=== PATIENT | male | born 1965 | race Caucasian/White ===

== ENCOUNTER → 2016-04-18 | Outpatient (REF) | payer OTHER, BC | LOC: M LABDRAWP 15:18 → M LABDRAW1 15:18 | PROVIDERS: ATTEND Physician Assistant | DX: M17.0 Bilateral primary osteoarthritis of knee (principal) ==

== ENCOUNTER → 2016-11-03 | Outpatient (CLI) | payer BC ==
[~2016-11-03] MED LIST: ATOR1TAB21 PO; COUM2.5T17 PO; LISI20TA PO; MORP15TASA PO; PERC5TAB12 PO
[2016-11-03 09:48] LABS: MEAN CORPUSCULAR HEMOGLOBIN 30.3 pg (27.0-33.0); MEAN CORPUSCULAR HGB CONC 33.7 g/dl (32.0-36.5); RED CELL DISTRIBUTION WIDTH 12.8 % (11.5-14.5); WHITE BLOOD COUNT 5.8 K/mm3 (4.0-10.0)
[2016-11-03 10:12] LABS: ALBUMIN 4.4 GM/DL (3.2-5.2); ALBUMIN/GLOBULIN RATIO 1.33 (1.00-1.93); ALKALINE PHOSPHATASE 90 U/L (45-117); ALT/SGPT 40 U/L (12-78); ANION GAP 8 MEQ/L (8-16); AST/SGOT 25 U/L (15-37); BILIRUBIN,TOTAL 1.7 MG/DL (0.2-1.0); BLOOD UREA NITROGEN 12 MG/DL (7-18); CALCIUM LEVEL 9.3 MG/DL (8.5-10.1); CARBON DIOXIDE LEVEL 29 MEQ/L (21-32); CHLORIDE LEVEL 103 MEQ/L (98-107); CREATININE FOR GFR 0.73 MG/DL (0.70-1.30); GLOMERULAR FILTRATION RATE > 60.0 (>56); GLUCOSE, FASTING 123 MG/DL (70-105); POTASSIUM SERUM 4.2 MEQ/L (3.5-5.1); SODIUM LEVEL 140 MEQ/L (136-145); TOTAL PROTEIN 7.7 GM/DL (6.4-8.2)
[2016-11-03 10:30] LABS: INR 0.88
--- NOTE | 2016-11-03 11:13 | REP ---
Clinical: Arthritis . Comparison: None . Technique: PA and lateral. Findings: The mediastinum and cardiac silhouette are normal. The lung metzger are clear and without acute consolidation, effusion, or pneumothorax. The skeletal structures are intact and normal. Impression: 1. No acute cardiopulmonary process. Signed by Carlos A Hill MD 11/03/2016 10:00 A
--- NOTE | 2016-11-03 16:47 | ECGEPIP ---
Stationary ECG Study [facility] Test Date: 2016-11-03 Pat Name: SIXTO SEWELL Department: Room: - Gender: M Quick Print Operator: [facility] : 1965 Requested By: Jaun Sevilla Order Number: [id number] Reading MD: Jose Angel Morse Measurements Intervals Mora Rate: 60 P: -11 WA: 144 QRS: 39 QRSD: 97 T: 15 QT: 416 QTc: 417 Interpretive Statements Normal sinus rhythm Delayed anterior R wave progression Comparison tracing not on file Electronically Signed On 11-03-2016 16:47:24 EDT by Jose Angel Morse
== END ==
LOC: M ADMPAT 09:07
PROVIDERS: ATTEND Orthopaedic Surgery
DX: Z01.818 Encounter for other preprocedural examination (principal); M17.12 Unilateral primary osteoarthritis, left knee

== ENCOUNTER 2016-11-16 11:15 | Inpatient (IN) | payer BC ==
[2016-11-03 09:37] VITALS: BP 130/78
--- NOTE | 2016-11-13 10:46 | HPE ---
DATE OF ANTICIPATED ADMISSION: 11/16/2016 ATTENDING PHYSICIAN: Dr. Whitley. CHIEF COMPLAINT: Left knee pain and stiffness. HISTORY: Patient is a 50-year-old male with progressively worsening left knee pain and stiffness. He has failed to improve with conservative measures and has continued pain with weightbearing activities and activities of daily living. He has consented for an elective left total knee arthroplasty with Dr. Whitley. Medical optimization received and reviewed from Dr. Morse. CURRENT MEDICATIONS: - lisinopril/hydrochlorothiazide 20/12.5 mg daily - Lipitor 20 mg daily - Nasonex 50 mcg two sprays in each nostril daily ALLERGIES: There are no known drug allergies. PAST MEDICAL HISTORY: Hypertension. Hyperlipidemia. PAST SURGICAL HISTORY: Noncontributory. SOCIAL HISTORY: Patient is a nonsmoker and only occasionally uses alcohol. REVIEW OF SYSTEMS: Patient denies fevers, chills, nausea, vomiting or diarrhea. He denies chest pain, shortness of breath, lightheadedness, dizziness or headaches. He does continue to have left knee pain with activities of daily living and weight bearing activities. EXAM: Well nourished, well developed male in no apparent distress. Head: Normocephalic. Neck: Supple without lymphadenopathy. Heart: Regular rate and rhythm. Lungs: Clear to auscultation bilaterally. Abdomen: Positive bowel sounds. Abdomen is soft and nontender to palpation. Musculoskeletal: Inspection of the left knee reveal no gross abnormalities. There is mild tenderness along the medial and lateral joint line. Motion in extension is full but he has only approximately 100 degrees of flexion. Left lower extremity strength is normal. No hip irritability was elicited with range of motion. His calf is soft, nontender to palpation with no palpable cords noted. Distally he is neurovascularly intact. Vital signs: Blood pressure 132/86, heart rate 82, respirations 14, temperature 98.1. Height 68 inches, weight 168 pounds. LABORATORY DATA: Chest x-ray: No acute cardiopulmonary process. EKG: Normal sinus rhythm with delayed anterior R wave progression. Comprehensive metabolic profile: Fasting glucose elevated at 123, BUN 12, creatinine 0.73, glomerular filtration rate greater than 60. Sodium 140, potassium 4.2, chloride 103, carbon dioxide 29, anion gap 8, calcium 9.3. AST 25, ALT 40, alkaline phosphatase 90. Total bilirubin elevated at 1.7. Total protein 7.7. Albumin 4.4. Albumin/globulin ratio 1.33. Complete blood count: WBC is 5.8, RBC 5.02, hemoglobin 15.2, hematocrit 45.2, platelets 289. Erythrocyte sedimentation rate 4. Prothrombin time decreased at 12. INR 0.88. Urine analysis is negative. Urine culture reveals no growth. Nasal and sinus culture reveal normal luis. IMPRESSION: Left knee osteoarthritis with x-rays notable for end stage degenerative changes. PLAN: Patient has consented for an elective left total knee arthroplasty with Dr. Whitley. Medical optimization received from Dr. Morse. NESHA
[~2016-11-16] VITALS: Ht 172.7 cm; Wt 79.4 kg
[~2016-11-16 11:15] MED LIST changes: -COUM2.5T17 PO; +LR 1,000 ML IV ONE; -MORP15TASA PO; -PERC5TAB12 PO
[2016-11-16] MEDS ORDERED: ACETAMINOPHEN 500 MG TAB PO ONE (11:30)
[2016-11-16] MEDS ORDERED: ceFAZolin 1GM INJ (J0690) As Ordered ONE (12:23)
[2016-11-16] MEDS ORDERED: TRANEXAMIC ACID 100 MG/ML 10ML VIAL As Ordered ONE (12:23)
[2016-11-16] MEDS ORDERED: EPINEPHrine INJ 1 MG/ML 1ML AMP As Ordered ONE (12:23)
[2016-11-16] MEDS ORDERED: BUPIVACAINE LIPOSOME/PF 1.3% 20 ML VIAL (13.3MG/ML)(EXPAREL) As Ordered ONE (12:24)
[2016-11-16] MEDS ORDERED: fentaNYL 100 MCG/2 ML INJECTION (J3010) As Ordered ONE ×2 (12:44→14:15)
[2016-11-16] MEDS ORDERED: MIDAZOLAM INJ 2 MG/2 ML VIAL (J2250) As Ordered ONE ×2 (12:44→14:15)
[2016-11-16] MEDS ORDERED: MIDAZOLAM INJ 2 MG/2 ML VIAL (J2250) IV ONE (13:30)
[2016-11-16] MEDS ORDERED: fentaNYL 100 MCG/2 ML INJECTION (J3010) IV ONE (13:30)
[2016-11-16] MEDS ORDERED: PROPOFOL 200 MG/20 ML VIAL As Ordered ONE (14:15)
[2016-11-16] MEDS ORDERED: LIDOCAINE 2% INJ 100 MG/5 ML SDV (FOR ANES.) As Ordered ONE (14:15)
[2016-11-16] MEDS ORDERED: ePHEDrine SULFATE 25 MG/5 ML(5MG/ML) SYRINGE As Ordered ONE (14:49)
[2016-11-16] MEDS ORDERED: MORPHINE 1MG/ML IN 0.9% NACL 100ML IV BAG As Ordered ONE (16:08)
[2016-11-16] MEDS ORDERED: EPIDURAL/PCA KEYS XX PRN (16:30)
[2016-11-16] MEDS ORDERED: ONDANSETRON 4MG/2ML VIAL (J2405) IV PRN ×2 (16:30→16:45)
[2016-11-16] MEDS ORDERED: FLEET ENEMA PR PRN (16:30)
[2016-11-16] MEDS ORDERED: ACETAMINOPHEN TAB 650MG DOSE (2X325MG) PO PRN (16:30)
[2016-11-16] MEDS ORDERED: diphenhydrAMINE INJ 50MG/ML VIAL (J1200) IV PRN (16:30)
[2016-11-16] MEDS ORDERED: NALBUPHINE HCL 10 MG/ML AMP (J2300) IV PRN (16:30)
[2016-11-16] MEDS ORDERED: NALOXONE INJ 0.4 MG/1 ML VIAL (J2310) IV PRN (16:30)
[2016-11-16] MEDS ORDERED: MORPHINE 1MG/ML IN 0.9% NACL 100ML IV BAG IV PRN (16:30)
[2016-11-16] MEDS ORDERED: fentaNYL 100 MCG/2 ML INJECTION (J3010) IV PRN (16:45)
[2016-11-16] MEDS ORDERED: PERCOCET 5MG/325MG TAB PO PRN (16:45)
[2016-11-16] MEDS ORDERED: METOCLOPRAMIDE INJ 10MG/2ML VIAL (J2765) IV PRN (16:45)
[2016-11-16] MEDS: LR 1,000 ML IV SCH (16:50)
--- NOTE | 2016-11-16 17:08 | RO ---
DATE OF PROCEDURE: 11/16/2016 PREPROCEDURE DIAGNOSIS: Left knee varus degenerative arthritis. POSTPROCEDURE DIAGNOSIS: Left knee varus degenerative arthritis. PROCEDURE: Left total knee arthroplasty using cruciate-retaining size 4 femoral component, size 4 tibial tray with a 12.5 mm rotating platform polyethylene insert and a 35 mm polyethylene button. All components were cemented. Prosthesis was made by [employer]. It was a PFC knee. SURGEON: Dr. Juan Whitley COUNTING MACHINE OPERATOR: Jamal Chantel Pulliam ANESTHESIA: Spinal with left femoral nerve block. COMPLICATIONS: None. SPECIMENS: Joint surface. DESCRIPTION OF PROCEDURE: Antibiotics were given intravenously preoperatively and then a left femoral nerve block, and then a spinal anesthetic was induced. Tourniquet was placed on the left upper thigh and not inflated. Left lower extremity was prepped and draped in the usual sterile fashion, then the leg was elevated, then the tourniquet was inflated to 250 mmHg after appropriate time out. A longitudinal incision was then made for a medial parapatellar approach to the knee. Bovie cautery was used to coagulate the crossing vessels. The subperiosteal dissection around the proximal and medial portion of the tibia was performed, as well as around the proximal lateral tibial plateau. The patellar was everted, then the knee was flexed. The anterior cruciate ligament (ACL) was debrided. A noemy was placed down the center of the femoral canal followed by the distal femoral cutting jig set at 5-degree valgus cut for a left knee at 10 mm resection level. The distal femoral cut was then performed. AP sizing jig measured just shy of 4; thus, it was pinned in that position. A 3-degree external rotation block was pinned, followed by the 4-in-1 block, size #4. We then performed the anterior, posterior, chamfer cuts, taking great care to protect the surrounding soft tissues. We then exposed the proximal tibial. I used the extramedullary alignment jig to estimate being aligned and parallel with the mechanical axis of the tibia. We referenced off the medial tibial condyle, set at 4 mm resection level. Block was pinned into that position, then a secondary check with the extramedullary noemy confirmed that we appeared to be parallel. Thus, a proximal tibial osteotomy was then performed. Lamina auxiliary equipment operator was placed laterally, and we performed a completion medial meniscectomy and debridement of the posteromedial osteophytes. We then placed the lamina auxiliary equipment operator medially and performed a completion lateral meniscectomy and debridement of the posterolateral osteophytes. We then used the spacer blocks, and I felt the 12.5 ultimately had given the best stability and there was excellent balance between the flexion and extension gaps. We then exposed the proximal tibia, sized for a #4 tibial tray, which was pinned into position, followed by the reamer and the broach, then the trial 12.5 polyethylene. Then, the femoral component was fixed into position, that is the trial, and then the knee brought into extension and then we everted the patella and performed patellar osteotomy and sized for a 35 button, which the lug holes were drilled and the patellofemoral tracking was noted to be anatomic with the prosthesis in position. There was good stability to varus-valgus stress testing at this point; thus, I removed all of the trial components after drilling the lug holes for the femur. Mrs. Chantel Pulliam mixed the cement on the back table and was also critical to the success of the procedure by helping to manipulate the knee, helping with appropriate soft tissue retraction, closing the wound, amongst many other tasks. As she mixed the cement on the back table, I injected Exparel into the posterior capsule and around the periosteum of the femur and the capsular incision, then copiously pulsatile lavage irrigated out the bony surfaces in preparation for cementing. Once they all had been thoroughly dried, we cemented the tibial tray, removed excess cement, placed the polyethylene, then cemented the femoral component, removed excess cement, brought the knee into extension, cemented the patellar button, removed excess cement, held it with a clamp until the cement hardened. While we were waiting, I irrigated the knee joint again copiously with pulsatile lavage irrigant solution, then placed the tranexamic acid, then began closing the arthrotomy with the apex with #1 PDS sutures and the medial parapatellar area was closed with #1 PDS suture followed by a double-armed #1 Stratafix closure, then the tourniquet was released. The remaining Exparel was placed on the capsular edges, irrigated again, and then we closed the deep subdermal tissues with interrupted #2-0 PDS suture, skin was closed with fletcher, covered by Adaptic dry sterile bulky dressing. He was then transferred to the recovery room in stable condition. There were no intraoperative complications.
[2016-11-16 17:15] VITALS: BP 138/76
[2016-11-16 17:45] VITALS: BP 137/76
[2016-11-16 18:45] VITALS: BP 133/69
[2016-11-16 19:20] VITALS: BP 137/84
[2016-11-16 20:20] VITALS: BP 132/81
--- NOTE | 2016-11-16 20:29 | CR ---
DATE OF CONSULTATION: 11/16/2016 REFERRING PHYSICIAN: Dr. Juan Whitley REASON FOR CONSULT: Management of chronic medical issues. HOSPITALIST OIL FIELD EQUIPMENT MECHANIC: Dr. Ave Crowley CHIEF COMPLAINT: Left knee pain, decrease in activities of daily living (ADLs). HISTORY OF THE PRESENT ILLNESS: This is a 51-year-old male with a history of hypertension, hypercholesterolemia, previous hip and knee surgeries, presents for left knee arthroplasty due to limitations of ADLs from severe osteoarthritis with failure of use of conservative management. Hospitalist service was called for consultation for management of chronic medical issues. Currently denies any chest pain, pressure, tightness, headaches, changes in vision, weight gain, weight loss, changes in appetite, headaches, sort throat, rhinorrhea, shortness of breath, nausea, vomiting, diarrhea, constipation. Has pain in the left knee postoperatively; otherwise no numbing or tingling sensation bilateral lower extremities. No depression or anxiety. PAST MEDICAL HISTORY: Hypertension. Hypercholesterolemia. Osteoarthritis. PAST SURGICAL HISTORY: Prior hip and knee surgery according to the patient. ALLERGIES: No known drug allergies. HOME MEDICATIONS: - lisinopril hydrochlorothiazide 20/12.5 one tablet daily - Lipitor 20 mg daily - Nasonex 50 mcg two sprays in each nostril daily SOCIAL HISTORY: Nonsmoker. Drinks two beers daily. FAMILY HISTORY: Mother at 81, history of breast cancer in her 60s. Father had coronary artery disease and myocardial infarction ([place]) in his 60s. REVIEW OF SYSTEMS: Per history of the present illness; twelve point system otherwise negative. PHYSICAL EXAMINATION: Temperature 96.9, pulse 54, respiratory rate 16, blood pressure 130/65, 100% on 2 liters nasal cannula. Generally awake, alert, oriented times three, answering questions appropriately. Anicteric sclerae. No jaundice. Pupils are round and reactive to light and accommodation. Extraocular muscles are intact. Normocephalic, atraumatic. No respiratory distress. Able to speak in full sentences. No use of respiratory accessory muscles. Neck is supple. Full range of motion. No cervical lymphadenopathy, thyromegaly, pharyngeal erythema, tonsillar exudates. No thyromegaly, lymphadenopathy or jugular venous distention. Lungs are clear to auscultation. No wheezing, rales, or rhonchi. Heart: S1, S2, sinus rhythm. No murmurs, rubs or gallops. Abdomen is soft, nontender, nondistended. Positive bowel sounds. No rebound, guarding. No hepatosplenomegaly. Extremities: Left knee postop. Distal pulses are noted. Skin: Warm, dry, well perfused. No pitting edema. 11/03/2016: White count 5.8, hemoglobin 15, hematocrit 45, platelet count 289. 11/03/2016: Sodium 140, potassium 4.2, chloride 103, bicarbonate 29, BUN 12, creatinine 0.73, glucose 123, A1c 5.7, calcium 9.3, total bilirubin 1.7, AST 25, ALT 40, alkaline phosphatase of 90, total protein 7.7, albumin 4.4, triglycerides 70, cholesterol 219, LDL 116, non-HDL 130, HDL of 89. IMAGING STUDIES: Chest x-ray 11/03/2016: No acute cardiopulmonary process. ASSESSMENT AND PLAN: This is a 51-year-old male with a history of hypertension, hypercholesterolemia, prior hip and knee surgery, presents due to severe osteoarthritis of the left knee for a left total knee replacement. Hospitalist service was consulted for management of chronic medical issues. The patient will be admitted to Dr. Ave Crowley at 7:00 p.m. on 11/16/2016. CURRENT ISSUES ARE FOLLOWS: 1. Left knee osteoarthritis with limitations of activities of daily living, status post total knee arthroplasty with Dr. Juan Whitley. Postoperative management per primary service, pain management, deep vein thrombosis (DVT) prophylaxis and bowel regimen. 2. Hypertension. The patient's blood pressure appears to be well maintained at this time. I will hold off on hydrochlorothiazide but may resume patient's lisinopril if the creatinine is normal in the morning. 3. Hyperlipidemia. Continue atorvastatin. 4. Deep vein thrombosis (DVT) prophylaxis with warfarin, managed by orthopedic surgery. The patient will be assigned to Dr. Ave Crowley at 7:00 p.m. on 11/16/2016, hospitalist pmo consultant. NESHA
[2016-11-16] MEDS: ATORVASTATIN 20 MG TAB PO SCH (20:55)
[2016-11-16] MEDS ORDERED: WARFARIN SOD 5 MG TAB PO ONE (21:00)
[2016-11-16 21:20] VITALS: BP 133/85
[2016-11-17] MEDS: LR 1,000 ML IV SCH (05:22)
[2016-11-17 06:00] VITALS: BP 137/84
[2016-11-17 06:33] LABS: BASO % 0.1 % (0.0-1.0); EOS % 0.1 % (0.0-3.0); LARGE UNSTAINED CELL # 0.1 K/mm3 (0.0-0.4); LARGE UNSTAINED CELL % 0.6 % (0.0-4.0); LYMPH # 0.8 K/mm3 (1.5-4.5); LYMPH % 4.1 % (24.0-44.0); MEAN CORPUSCULAR HEMOGLOBIN 31.4 pg (27.0-33.0); MEAN CORPUSCULAR HGB CONC 36.1 g/dl (32.0-36.5); MEAN CORPUSCULAR VOLUME 86.9 fl (80.0-96.0); MONO # 0.9 K/mm3 (0.0-0.8); MONO % 4.3 % (0.0-5.0); NEUTROPHILS # 18.1 K/mm3 (1.8-7.7); NEUTROPHILS % 90.8 % (36.0-66.0); PLATELET COUNT, AUTOMATED 299 k/mm3 (150-450); RED CELL DISTRIBUTION WIDTH 12.4 % (11.5-14.5); WHITE BLOOD COUNT 19.9 K/mm3 (4.0-10.0)
[2016-11-17 06:43] LABS: INR 1.02
[2016-11-17] MEDS ORDERED: ONDANSETRON 4 MG TAB (S0181) PO PRN (06:45)
[2016-11-17 07:18] LABS: ANION GAP 9 MEQ/L (8-16); BLOOD UREA NITROGEN 13 MG/DL (7-18); CARBON DIOXIDE LEVEL 25 MEQ/L (21-32); CHLORIDE LEVEL 101 MEQ/L (98-107); CHOLESTEROL LEVEL 199 MG/DL (<200); CREATININE FOR GFR 0.66 MG/DL (0.70-1.30); GLOMERULAR FILTRATION RATE > 60.0 (>56); GLUCOSE, FASTING 181 MG/DL (70-105); POTASSIUM SERUM 3.8 MEQ/L (3.5-5.1); SODIUM LEVEL 135 MEQ/L (136-145); TRIGLYCERIDES LEVEL 97 MG/DL (<150)
[2016-11-17] MEDS ORDERED: ROPIvacaine 0.5% 30 ML INJECTION (J2795) ONE (07:55)
[2016-11-17] MEDS ORDERED: dexameTHASONE 10 MG/1 ML VIAL PRES.FREE (J1100) ONE (07:55)
[2016-11-17] MEDS ORDERED: EPINEPHrine INJ 1 MG/ML 1ML AMP ONE (07:55)
[2016-11-17] MEDS: MOM 30ML SUSPENSION UDC PO SCH (10:59)
[2016-11-17] MEDS: MIRALAX *UNIT DOSE* 17GM PACKET PO SCH (10:59)
[2016-11-17] MEDS: TAMSULOSIN 0.4 MG CAP PO SCH (11:00)
[2016-11-17] MEDS: PERCOCET 5MG/325MG TAB PO PRN ×4 (11:00→23:59)
[2016-11-17] MEDS: SENOKOT S TAB PO SCH ×2 (11:00→19:32)
--- NOTE | 2016-11-17 11:16 | REP ---
LEFT KNEE: Two views of the left knee are performed. There is a total knee prosthesis which appears to be in good position. Structures are well aligned and intact. Metallic skin fletcher are seen anteriorly. Signed by Freddie Amato MD 11/17/2016 02:23 P
[2016-11-17 14:00] VITALS: BP 162/80
[2016-11-17] MEDS ORDERED: WARFARIN SOD 5 MG TAB PO ONE (17:00)
[2016-11-17] MEDS ORDERED: MORPHINE 15 MG SA TAB PO ONE (18:00)
[2016-11-17] MEDS: diphenhydrAMINE 25 MG CAP PO PRN (18:12)
[2016-11-17] MEDS: ATORVASTATIN 20 MG TAB PO SCH (19:32)
[2016-11-17] MEDS ORDERED: MORPHINE 4 MG/ML 1ML SYRINGE IV PRN ×2 (21:00)
[2016-11-17 22:00] VITALS: BP 129/82
[2016-11-18] MEDS: PERCOCET 5MG/325MG TAB PO PRN ×5 (04:35→21:53)
[2016-11-18 06:00] VITALS: BP 146/70
[2016-11-18 06:27] LABS: MEAN CORPUSCULAR HGB CONC 35.5 g/dl (32.0-36.5); MEAN CORPUSCULAR VOLUME 87.3 fl (80.0-96.0); RED CELL DISTRIBUTION WIDTH 12.3 % (11.5-14.5); WHITE BLOOD COUNT 13.7 K/mm3 (4.0-10.0)
[2016-11-18 06:32] LABS: INR 1.19
[2016-11-18 06:58] LABS: ANION GAP 8 MEQ/L (8-16); BLOOD UREA NITROGEN 10 MG/DL (7-18); CALCIUM LEVEL 8.1 MG/DL (8.5-10.1); CARBON DIOXIDE LEVEL 28 MEQ/L (21-32); CHLORIDE LEVEL 101 MEQ/L (98-107); CREATININE FOR GFR 0.51 MG/DL (0.70-1.30); GLOMERULAR FILTRATION RATE > 60.0 (>56); GLUCOSE, FASTING 142 MG/DL (70-105); POTASSIUM SERUM 3.7 MEQ/L (3.5-5.1); SODIUM LEVEL 137 MEQ/L (136-145)
[2016-11-18] MEDS ORDERED: ENOXAPARIN 40 MG/0.4 ML SYRINGE (J1650) SC ONE (07:30)
[2016-11-18] MEDS: TAMSULOSIN 0.4 MG CAP PO SCH (08:28)
[2016-11-18] MEDS: SENOKOT S TAB PO SCH ×2 (08:28→20:58)
[2016-11-18] MEDS: MOM 30ML SUSPENSION UDC PO SCH (08:28)
[2016-11-18] MEDS: MIRALAX *UNIT DOSE* 17GM PACKET PO SCH (08:28)
[2016-11-18] MEDS: MORPHINE 15 MG SA TAB PO SCH ×2 (08:29→20:58)
[2016-11-18] MEDS ORDERED: INFLUENZA QUADRIVALENT PF VACCINE 0.5ML SYRINGE (90686) IM ONE (09:00)
[2016-11-18 14:00] VITALS: BP 156/76
[2016-11-18] MEDS ORDERED: WARFARIN SOD 7.5 MG TAB PO ONE (17:00)
[2016-11-18] MEDS: diphenhydrAMINE 25 MG CAP PO PRN (20:58)
[2016-11-18] MEDS: ATORVASTATIN 20 MG TAB PO SCH (20:58)
[2016-11-18 22:00] VITALS: BP 159/74
[2016-11-19] MEDS: PERCOCET 5MG/325MG TAB PO PRN ×3 (03:46→12:07)
[2016-11-19 06:00] VITALS: BP 149/71
[2016-11-19 06:36] LABS: INR 1.34
[2016-11-19 06:39] LABS: MEAN CORPUSCULAR HEMOGLOBIN 31.1 pg (27.0-33.0); MEAN CORPUSCULAR HGB CONC 35.5 g/dl (32.0-36.5); MEAN CORPUSCULAR VOLUME 87.7 fl (80.0-96.0); RED CELL DISTRIBUTION WIDTH 12.2 % (11.5-14.5); WHITE BLOOD COUNT 9.3 K/mm3 (4.0-10.0)
[2016-11-19 07:07] LABS: ANION GAP 8 MEQ/L (8-16); BLOOD UREA NITROGEN 7 MG/DL (7-18); CALCIUM LEVEL 7.8 MG/DL (8.5-10.1); CARBON DIOXIDE LEVEL 27 MEQ/L (21-32); CHLORIDE LEVEL 103 MEQ/L (98-107); CREATININE FOR GFR 0.52 MG/DL (0.70-1.30); GLOMERULAR FILTRATION RATE > 60.0 (>56); GLUCOSE, FASTING 130 MG/DL (70-105); POTASSIUM SERUM 4.2 MEQ/L (3.5-5.1); SODIUM LEVEL 138 MEQ/L (136-145)
[2016-11-19] MEDS ORDERED: MAGNESIUM CITRATE 300 ML BTL PO ONE (07:45)
[2016-11-19] MEDS ORDERED: MAGNESIUM CITRATE 300 ML BTL PO PRN (07:45)
[2016-11-19] MEDS: MORPHINE 15 MG SA TAB PO SCH (07:47)
[2016-11-19] MEDS: SENOKOT S TAB PO SCH (07:48)
[2016-11-19] MEDS: TAMSULOSIN 0.4 MG CAP PO SCH (07:48)
[2016-11-19] MEDS: MIRALAX *UNIT DOSE* 17GM PACKET PO SCH (07:48)
[2016-11-19] MEDS: MOM 30ML SUSPENSION UDC PO SCH (07:48)
[2016-11-19] MEDS ORDERED: MORP15TASA PO (08:55)
[2016-11-19] MEDS ORDERED: COUM2.5T17 PO (08:55)
[2016-11-19] MEDS ORDERED: PERC5TAB12 PO (08:55)
[2016-11-19] MEDS ORDERED: ENOXAPARIN 40 MG/0.4 ML SYRINGE (J1650) SC ONE (09:00)
--- NOTE | 2016-11-23 10:31 | DSES ---
DATE OF ADMISSION: 11/16/2016 DATE OF DISCHARGE: 11/19/2016 ATTENDING PHYSICIAN: Dr. Roel Whitley. ADMISSION DIAGNOSIS: Osteoarthritis left knee. OTHER DIAGNOSES: Hypertension. Elevated cholesterol. DISCHARGE DIAGNOSIS: Osteoarthritis left knee status post left total knee arthroplasty. OPERATION PERFORMED: Left total knee arthroplasties. HISTORY: This is a 51-year-old male patient with progressively worsening left knee pain and stiffness. He failed to improve with conservative management. He was admitted for elective knee replacement on left side. HOSPITAL COURSE: The patient was admitted on day of surgery underwent a left total knee arthroplasty which was uneventful. He did well in the postoperative period and hospital course was without complications. He was up with physical therapy per their protocol and his pain was controlled. On day of discharge he was doing well, weightbearing as tolerated on his left lower extremity. He will use adjusted dose Coumadin and thromboembolic deterrent stockings (TEDS) for 30 days postoperative for deep venous thrombosis (DVT) prophylaxis. He will resume his preoperative medications and diet. He will use oral pain medications for pain control. He will follow up in our office in 10-14 days for surgical followup. He was given instructions to include but not limited to wound monitoring and activity limitations. Please refer the medical record for further details.
== END 2016-11-19 13:55 | disposition home or self-care (01) | DRG 302 ==
LOC: M OR 11:15 → M MS5PR 16:50
PROVIDERS: ADMIT Orthopaedic Surgery; ATTEND Orthopaedic Surgery
PROC: 0SRD0J9 Replacement of Left Knee Joint with Synthetic Substitute, Cemented, Open Approach (ICD-10-PCS; principal; 2016-11-16 13:00)
DX: M17.12 Unilateral primary osteoarthritis, left knee (principal); I10 Essential (primary) hypertension; Z79.899 Other long term (current) drug therapy; E78.5 Hyperlipidemia, unspecified

== ENCOUNTER → 2016-11-30 | Outpatient (REF) | payer BC ==
[~2016-11-30] MED LIST changes: +COUM2.5T17 PO; -LR 1,000 ML IV ONE; +MORP15TASA PO; +PERC5TAB12 PO
[2016-11-30 11:32] LABS: INR 1.17
== END ==
LOC: M LABDRAW1 10:01
PROVIDERS: ATTEND Orthopaedic Surgery
DX: Z79.01 Long term (current) use of anticoagulants (principal)

== ENCOUNTER → 2017-02-06 | Outpatient (REF) | payer BC ==
[2017-02-06 13:06] LABS: ALBUMIN 4.3 GM/DL (3.2-5.2); ALBUMIN/GLOBULIN RATIO 1.34 (1.00-1.93); ALKALINE PHOSPHATASE 98 U/L (45-117); ALT/SGPT 31 U/L (12-78); ANION GAP 11 MEQ/L (8-16); AST/SGOT 21 U/L (7-37); BILIRUBIN,TOTAL 1.6 MG/DL (0.2-1.0); BLOOD UREA NITROGEN 19 MG/DL (7-18); CALCIUM LEVEL 9.7 MG/DL (8.5-10.1); CARBON DIOXIDE LEVEL 29 MEQ/L (21-32); CHLORIDE LEVEL 99 MEQ/L (98-107); CHOLESTEROL LEVEL 210 MG/DL (<200); CREATININE FOR GFR 0.72 MG/DL (0.70-1.30); GLOMERULAR FILTRATION RATE > 60.0 (>56); GLUCOSE, FASTING 113 MG/DL (70-105); POTASSIUM SERUM 4.2 MEQ/L (3.5-5.1); SODIUM LEVEL 139 MEQ/L (136-145); TOTAL PROTEIN 7.5 GM/DL (6.4-8.2); TRIGLYCERIDES LEVEL 94 MG/DL (<150)
== END ==
LOC: M LABDRAW1 12:34
PROVIDERS: ATTEND Internal Medicine
DX: I10 Essential (primary) hypertension (principal); R73.01 Impaired fasting glucose; R78.0 Finding of alcohol in blood

== ENCOUNTER 2017-06-25 08:38 | Inpatient (IN) | payer BC ==
[2017-06-25] MEDS: ACETAMINOPHEN 500 MG TAB PO (09:15)
[2017-06-25] MEDS: LR 1,000 ML IV ×3 (09:46→16:53)
[2017-06-25] MEDS ORDERED: MIDAZOLAM INJ 2 MG/2 ML VIAL (J2250) As Ordered ×3 (09:56→11:16)
[2017-06-25] MEDS ORDERED: fentaNYL 100 MCG/2 ML INJECTION (J3010) As Ordered ×2 (09:56→10:14)
[2017-06-25] MEDS: fentaNYL 100 MCG/2 ML INJECTION (J3010) IV (10:13)
[2017-06-25] MEDS: MIDAZOLAM INJ 2 MG/2 ML VIAL (J2250) IV (10:13)
[2017-06-25] MEDS ORDERED: ROPIvacaine 0.5% 30 ML INJECTION (J2795 PER 1MG) (11:20)
[2017-06-25] MEDS ORDERED: EPINEPHrine INJ 1 MG/ML 1ML AMP (11:20)
[2017-06-25] MEDS ORDERED: dexameTHASONE 10 MG/1 ML VIAL PRES.FREE (J1100) (11:20)
[2017-06-25] MEDS: ceFAZolin 1GM INJ (J0690 PER 500MG) As Ordered (11:34)
[2017-06-25] MEDS: TRANEXAMIC ACID 100 MG/ML 10ML VIAL As Ordered (12:15)
[2017-06-25] MEDS: EPINEPHrine INJ 1 MG/ML 1ML AMP As Ordered (12:15)
[2017-06-25] MEDS ORDERED: PROPOFOL 200 MG/20 ML VIAL As Ordered ×4 (12:17)
[2017-06-25] MEDS: BUPIVACAINE HCL 0.25% 10 ML VIAL As Ordered (12:20)
[2017-06-25] MEDS: BUPIVACAINE LIPOSOME/PF 1.3% 20 ML VIAL (13.3MG/ML)(EXPAREL) As Ordered (12:20)
[2017-06-25] MEDS ORDERED: MORPHINE 1MG/ML IN 0.9% NACL 100ML IV BAG As Ordered (13:09)
[2017-06-25] MEDS ORDERED: ACETAMINOPHEN TAB 650MG DOSE (2X325MG) PO (13:15)
[2017-06-25] MEDS ORDERED: fentaNYL 100 MCG/2 ML INJECTION (J3010) IV (13:15)
[2017-06-25] MEDS ORDERED: FLEET ENEMA PR (13:15)
[2017-06-25] MEDS ORDERED: diphenhydrAMINE INJ 50MG/ML VIAL (J1200) IV (13:15)
[2017-06-25] MEDS ORDERED: NORCO, ANEXSIA 5/325MG TABLET (HYDROcodone/ACETAMINOPHEN) PO (13:15)
[2017-06-25] MEDS ORDERED: NALOXONE INJ 0.4 MG/1 ML VIAL (J2310) IV (13:15)
[2017-06-25] MEDS: MORPHINE 1MG/ML IN 0.9% NACL 100ML IV BAG IV (13:15)
[2017-06-25] MEDS ORDERED: EPIDURAL/PCA KEYS XX (13:15)
[2017-06-25] MEDS ORDERED: ONDANSETRON 4MG/2ML VIAL (J2405) IV ×2 (13:15)
[2017-06-25] MEDS ORDERED: NALBUPHINE HCL 10 MG/ML AMP (J2300) IV (13:15)
[2017-06-25] MEDS: WARFARIN SOD 5 MG TAB PO (16:52)
[2017-06-25] MEDS: LISINOPRIL 20 MG TAB PO (18:01)
[2017-06-26] MEDS: LR 1,000 ML IV (01:45)
[2017-06-26 05:34] LABS: HEMATOCRIT 38.8 % (42.0-52.0); MEAN CORPUSCULAR HEMOGLOBIN 28.7 pg (27.0-33.0); MEAN CORPUSCULAR HGB CONC 33.5 g/dl (32.0-36.5); MEAN CORPUSCULAR VOLUME 85.7 fl (80.0-96.0); PLATELET COUNT, AUTOMATED 354 10^3/uL (150-450); RED BLOOD COUNT 4.53 10^6/uL (4.30-6.10); RED CELL DISTRIBUTION WIDTH 13.1 % (11.5-14.5)
[2017-06-26 05:50] LABS: ANION GAP 9 MEQ/L (8-16); BLOOD UREA NITROGEN 8 MG/DL (7-18); CALCIUM LEVEL 8.5 MG/DL (8.5-10.1); CARBON DIOXIDE LEVEL 26 MEQ/L (21-32); CHLORIDE LEVEL 103 MEQ/L (98-107); CREATININE FOR GFR 0.66 MG/DL (0.70-1.30); GLOMERULAR FILTRATION RATE > 60.0 (>56); GLUCOSE, FASTING 174 MG/DL (70-100); POTASSIUM SERUM 3.9 MEQ/L (3.5-5.1); PROTHROMBIN TIME 14.3 SECONDS (12.4-14.5); SODIUM LEVEL 138 MEQ/L (136-145)
[2017-06-26] MEDS ORDERED: PERCOCET 5MG/325MG TAB PO (06:45)
[2017-06-26] MEDS ORDERED: ONDANSETRON 4 MG TAB (S0181) PO (06:45)
[2017-06-26] MEDS: MOM 30ML SUSPENSION UDC PO (08:13)
[2017-06-26] MEDS: SENOKOT S TAB PO ×2 (08:13→21:29)
[2017-06-26] MEDS: LISINOPRIL 20 MG TAB PO (08:13)
[2017-06-26] MEDS: MIRALAX *UNIT DOSE* 17GM PACKET PO (08:13)
[2017-06-26] MEDS: PERCOCET 5MG/325MG TAB PO ×4 (08:14→21:30)
[2017-06-26] MEDS: WARFARIN SOD 5 MG TAB PO (16:06)
[2017-06-27] MEDS: PERCOCET 5MG/325MG TAB PO ×2 (03:51→09:03)
[2017-06-27 05:34] LABS: HEMATOCRIT 39.2 % (42.0-52.0); MEAN CORPUSCULAR HEMOGLOBIN 28.8 pg (27.0-33.0); MEAN CORPUSCULAR HGB CONC 33.2 g/dl (32.0-36.5); MEAN CORPUSCULAR VOLUME 86.9 fl (80.0-96.0); PLATELET COUNT, AUTOMATED 278 10^3/uL (150-450); RED BLOOD COUNT 4.51 10^6/uL (4.30-6.10); RED CELL DISTRIBUTION WIDTH 13.3 % (11.5-14.5); WHITE BLOOD COUNT 14.5 10^3/uL (4.0-10.0)
[2017-06-27 05:51] LABS: ANION GAP 5 MEQ/L (8-16); BLOOD UREA NITROGEN 8 MG/DL (7-18); CALCIUM LEVEL 8.4 MG/DL (8.5-10.1); CARBON DIOXIDE LEVEL 29 MEQ/L (21-32); CHLORIDE LEVEL 102 MEQ/L (98-107); CREATININE FOR GFR 0.63 MG/DL (0.70-1.30); GLOMERULAR FILTRATION RATE > 60.0 (>56); GLUCOSE, FASTING 136 MG/DL (70-100); INR 1.34; POTASSIUM SERUM 3.9 MEQ/L (3.5-5.1); PROTHROMBIN TIME 16.9 SECONDS (12.4-14.5); SODIUM LEVEL 136 MEQ/L (136-145)
[2017-06-27] MEDS: MOM 30ML SUSPENSION UDC PO (09:03)
[2017-06-27] MEDS: SENOKOT S TAB PO (09:03)
[2017-06-27] MEDS: MIRALAX *UNIT DOSE* 17GM PACKET PO (09:03)
[2017-06-27] MEDS: LISINOPRIL 20 MG TAB PO (09:03)
[2017-06-27] MEDS ORDERED: WARFARIN SOD 7.5 MG TAB PO (17:00)
== END 2017-06-27 13:40 | disposition home health service (06) | DRG 302 ==
LOC: M OR 08:38 → M MS5PR 15:35
PROC: 0SRC0J9 Replacement of Right Knee Joint with Synthetic Substitute, Cemented, Open Approach (ICD-10-PCS; principal; 2017-06-25 10:49)
DX: M17.11 Unilateral primary osteoarthritis, right knee (principal); I10 Essential (primary) hypertension; E78.00 Pure hypercholesterolemia, unspecified; Z96.652 Presence of left artificial knee joint; Z79.899 Other long term (current) drug therapy; I25.10 Atherosclerotic heart disease of native coronary artery without angina pectoris; E11.9 Type 2 diabetes mellitus without complications

== ENCOUNTER → 2017-07-09 | Outpatient (REF) | payer BC ==
[2017-07-09 13:13] LABS: INR 1.77; PROTHROMBIN TIME 21.2 SECONDS (12.4-14.5)
== END ==
LOC: M LABDRAW1 10:47
DX: Z47.1 Aftercare following joint replacement surgery (principal)
CPT/HCPCS: 85610

== ENCOUNTER → 2017-07-24 | Outpatient (REF) | payer BC ==
[2017-07-24 19:20] LABS: ANION GAP 6 MEQ/L (8-16); BLOOD UREA NITROGEN 20 MG/DL (7-18); CALCIUM LEVEL 9.2 MG/DL (8.5-10.1); CARBON DIOXIDE LEVEL 27 MEQ/L (21-32); CHLORIDE LEVEL 106 MEQ/L (98-107); CREATININE FOR GFR 0.78 MG/DL (0.70-1.30); GLOMERULAR FILTRATION RATE > 60.0 (>56); GLUCOSE, FASTING 102 MG/DL (70-100); POTASSIUM SERUM 3.8 MEQ/L (3.5-5.1); SODIUM LEVEL 139 MEQ/L (136-145)
== END ==
LOC: M LABDRAW1 17:20
DX: Z79.899 Other long term (current) drug therapy (principal)
CPT/HCPCS: 80048

== ENCOUNTER 2019-01-31 07:49 | Day surgery (SDC) | payer BC ==
[~2019-01-31] VITALS: Ht 172.7 cm; Wt 85.7 kg
[~2019-01-31 07:49] MED LIST changes: +LIPI20TA PO; -LISI20TA PO; +LISI20TA19 PO; +MELO15TA28 PO; +NS 1,000 ML IV ONE
[2019-01-31] MEDS ORDERED: PROPOFOL 200 MG/20 ML VIAL As Ordered ONE (09:05)
[2019-01-31] MEDS ORDERED: LIDOCAINE 2% INJ 100 MG/5 ML SDV (FOR ANES.) As Ordered ONE (09:05)
--- NOTE | 2019-01-31 09:10 | ROOR ---
Patient Name: Job Jackson Procedure Date: 01/31/2019 8:37 AM Date of : 1965 Age: 53 Room: [facility] Gender: Male Note Status: Finalized Procedure: Colonoscopy Indications: Screening for colorectal malignant neoplasm Providers: Daniel Felix MD Referring MD: Jose Angel Morse MD Requesting Provider: Medicines: Monitored Anesthesia Care Complications: No immediate complications. Procedure: Pre-Anesthesia Assessment: - Prior to the procedure, a History and Physical was performed, and patient medications and allergies were reviewed. The patient is competent. The risks and benefits of the procedure and the sedation options and risks were discussed with the patient. All questions were answered and informed consent was obtained. Patient identification and proposed procedure were verified by the physician, the nurse and the anesthesiologist in the procedure room. Mental Status Examination: alert and oriented. Airway Examination: normal oropharyngeal airway and neck mobility. Respiratory Examination: clear to auscultation. CV Examination: normal. Prophylactic Antibiotics: The patient does not require prophylactic antibiotics. Prior Anticoagulants: The patient has taken no previous anticoagulant or antiplatelet agents. ASA Grade Assessment: II - A patient with mild systemic disease. After reviewing the risks and benefits, the patient was deemed in satisfactory condition to undergo the procedure. The anesthesia plan was to use monitored anesthesia care (MAC). Immediately prior to administration of medications, the patient was re-assessed for adequacy to receive sedatives. The heart rate, respiratory rate, oxygen saturations, blood pressure, adequacy of pulmonary ventilation, and response to care were monitored throughout the procedure. The physical status of the patient was re-assessed after the procedure. The Colonoscope was introduced through the anus and advanced to the terminal ileum, with identification of the appendiceal orifice and IC valve. The colonoscopy was performed without difficulty. The patient tolerated the procedure well. The quality of the bowel preparation was good. The terminal ileum, ileocecal valve, appendiceal orifice, and rectum were photographed. Scope insertion time was 3 minutes. Scope withdrawal time was 9 minutes. The total duration of the procedure was 12 minutes. Findings: The perianal and digital rectal examinations were normal. The terminal ileum appeared normal. Two sessile polyps were found in the ascending colon. The polyps were 5 to 8 mm in size. These polyps were removed with a cold snare. Resection and retrieval were complete. Verification of patient identification for the specimen was done by the physician and nurse using the patient's name, date and medical record number. Estimated blood loss was minimal. Multiple small and large-mouthed diverticula were found from sigmoid to descending colon. There was no evidence of diverticular bleeding. Non-bleeding external and internal hemorrhoids were found during retroflexion. The hemorrhoids were medium-sized. Impression: - The examined portion of the ileum was normal. - Two 5 to 8 mm polyps in the ascending colon, removed with a cold snare. Resected and retrieved. - Moderate diverticulosis from sigmoid to descending colon. There was no evidence of diverticular bleeding. - Non-bleeding external and internal hemorrhoids. Recommendation: - Patient has a contact number available for emergencies. The signs and symptoms of potential delayed complications were discussed with the patient. Return to normal activities tomorrow. Written discharge instructions were provided to the patient. - High fiber diet. - Continue present medications. - Use fiber, for example Citrucel, Fibercon, Konsyl or Metamucil. - Await pathology results. - Repeat colonoscopy in 5-10 years for surveillance based on pathology results. - Telephone GI clinic for pathology results in 2 weeks. - Return to primary care physician. Daniel Felix MD Daniel Felix MD 01/31/2019 9:10:12 AM Electronically signed by Daniel Felix MD Number of Addenda: 0 Note Initiated On: 01/31/2019 8:37 AM Estimated Blood Loss: Estimated blood loss was minimal.
[2019-01-31 09:25] VITALS: BP 127/75
== END 2019-01-31 09:42 | disposition home or self-care (01) ==
LOC: M OPP 07:49
PROVIDERS: ATTEND Internal Medicine Gastroenterology
DX: Z12.11 Encounter for screening for malignant neoplasm of colon (principal); D12.2 Benign neoplasm of ascending colon; K64.8 Other hemorrhoids; K57.30 Diverticulosis of large intestine without perforation or abscess without bleeding; I10 Essential (primary) hypertension; E78.5 Hyperlipidemia, unspecified; Z79.899 Other long term (current) drug therapy

== ENCOUNTER → 2021-10-03 | Outpatient (CLI) | payer BC ==
[~2021-10-03] MED LIST changes: +ISOVUE-300 61% 50ML VIAL As Ordered ONE; +LIDOCAINE 1% MDV 20ML VIAL As Ordered ONE; -LISI20TA19 PO; +LISI20TA35 PO; -NS 1,000 ML IV ONE; +methylPREDNISolone SUSP 40MG/ML 1ML VIAL (DEPO MEDROL) As Ordered ONE
== END ==
LOC: M RADPRO 12:32
PROVIDERS: ATTEND Physician Assistant Surgical
DX: M16.12 Unilateral primary osteoarthritis, left hip (principal)
CPT/HCPCS: 20610; 76000; J1030; Q9967

== ENCOUNTER → 2021-10-11 | Outpatient (CLI) | payer BC ==
[~2021-10-11] MED LIST changes: -ISOVUE-300 61% 50ML VIAL As Ordered ONE; -LIDOCAINE 1% MDV 20ML VIAL As Ordered ONE; -methylPREDNISolone SUSP 40MG/ML 1ML VIAL (DEPO MEDROL) As Ordered ONE
== END ==
LOC: M RAD 09:31
PROVIDERS: ATTEND Physician Assistant Surgical
DX: M25.562 Pain in left knee (principal); Z96.653 Presence of artificial knee joint, bilateral
CPT/HCPCS: 78315; A9503

== ENCOUNTER → 2021-11-02 | Outpatient (CLI) | payer BC ==
[~2021-11-02] MED LIST changes: +ISOVUE-300 61% 50ML VIAL As Ordered ONE; +LIDOCAINE 1% MDV 20ML VIAL As Ordered ONE; +methylPREDNISolone SUSP 40MG/ML 1ML VIAL (DEPO MEDROL) As Ordered ONE
== END ==
LOC: M IRPRO 09:31 → M RAD 09:31
PROVIDERS: ATTEND Physician Assistant Surgical
DX: M16.11 Unilateral primary osteoarthritis, right hip (principal)
CPT/HCPCS: 20610; 76000; J1030; Q9967

== ENCOUNTER → 2021-11-16 | Outpatient (CLI) | payer BC ==
[~2021-11-16] MED LIST changes: -ISOVUE-300 61% 50ML VIAL As Ordered ONE; -LIDOCAINE 1% MDV 20ML VIAL As Ordered ONE; -methylPREDNISolone SUSP 40MG/ML 1ML VIAL (DEPO MEDROL) As Ordered ONE
[2021-11-16 15:42] LABS: BASO % 0.3 % (0.0-1.0); EOS # 0.1 10^3/uL (0.0-0.5); HEMATOCRIT 45.6 % (42.0-52.0); HEMOGLOBIN 15.1 g/dl (13.5-17.5); LYMPH # 1.4 10^3/uL (1.5-5.0); LYMPH % 17.8 % (24.0-44.0); MEAN CORPUSCULAR HEMOGLOBIN 29.3 pg (27.0-33.0); MEAN CORPUSCULAR HGB CONC 33.1 g/dl (32.0-36.5); MEAN CORPUSCULAR VOLUME 88.4 fl (80.0-96.0); MONO # 0.6 10^3/uL (0.0-0.8); MONO % 7.3 % (2.0-8.0); NEUTROPHILS # 5.7 10^3/uL (1.5-8.5); PLATELET COUNT, AUTOMATED 332 10^3/uL (150-450); RED BLOOD COUNT 5.16 10^6/uL (4.30-6.10); WHITE BLOOD COUNT 7.8 10^3/uL (4.0-10.0)
[2021-11-16 16:18] LABS: ERYTHROCYTE SEDIMENTATION RATE 5 mm/hr (0-20)
== END ==
LOC: M PLALAB 13:46
PROVIDERS: ATTEND Physician Assistant Surgical
DX: M25.562 Pain in left knee (principal)

== ENCOUNTER → 2021-12-12 | Outpatient (REF) | payer BC ==
[2021-12-12 13:16] LABS: CRYSTALS, BODY FLUID URIC ACID (NONE SEEN); SOURCE, BODY FLUID CRYSTALS LFT KNEE
[2021-12-12 13:27] LABS: SOURCE, BODY FLUID LFT KNEE; SYNOVIAL FLUID COLOR AMBER (COLORLESS)
[2021-12-12 14:06] LABS: SOURCE, BODY FLUID GLUCOSE LFT KNEE
== END ==
LOC: M LAB REF 12:45
PROVIDERS: ATTEND Orthopaedic Surgery
DX: M25.562 Pain in left knee (principal)

== ENCOUNTER → 2022-06-09 | Outpatient (CLI) | payer BC | LOC: M PLALAB 11:42 | PROVIDERS: ATTEND Orthopaedic Surgery | DX: M10.061 Idiopathic gout, right knee (principal) ==

== ENCOUNTER 2024-07-07 07:29 | Day surgery (SDC) | payer MEDICARE, BC ==
[~2024-07-07] VITALS: Ht 172.7 cm; Wt 85.1 kg
[~2024-07-07 07:29] MED LIST changes: +ALLO100T PO; +BAYE81TA10 PO; +ETAN50PE; +FOLI1TAB11 PO; +METH2.5T48 PO; +MORP-138 PO; -MORP15TASA PO; +REPA140I2 SC; +ROSU20TA86 PO; +SEMA2.4P SC
[2024-07-07] MEDS ORDERED: propofoL 200 MG/20 ML VIAL As Ordered ONE (08:43)
[2024-07-07] MEDS ORDERED: LIDOCAINE 2% 100MG/5ML SDV (FOR ANES.) As Ordered ONE (08:43)
[2024-07-07 09:08] VITALS: TEMP 97
[2024-07-07 09:33] VITALS: BP 148/77; O2SAT 100
== END 2024-07-07 09:47 | disposition home or self-care (01) ==
LOC: M OPP 07:29
PROVIDERS: ATTEND Internal Medicine Gastroenterology
DX: Z12.11 Encounter for screening for malignant neoplasm of colon (principal); D12.5 Benign neoplasm of sigmoid colon; K57.30 Diverticulosis of large intestine without perforation or abscess without bleeding; K64.8 Other hemorrhoids; Z86.0100 Personal history of colon polyps, unspecified; I25.10 Atherosclerotic heart disease of native coronary artery without angina pectoris; I10 Essential (primary) hypertension; E78.00 Pure hypercholesterolemia, unspecified; M10.9 Gout, unspecified; Z79.899 Other long term (current) drug therapy; Z79.85 Long-term (current) use of injectable non-insulin antidiabetic drugs; Z79.82 Long term (current) use of aspirin